=== PATIENT | female | born 1990 | race Caucasian/White ===

== ENCOUNTER 2016-07-14 23:54 | Emergency (ER) | payer SELFPAY ==
[~2016-07-14] VITALS: Ht 157.5 cm; Wt 77.5 kg
[2016-07-14 23:59] VITALS: Ht 157.5 cm; Wt 77.5 kg
--- NOTE | 2016-07-15 01:43 | ERD ---
ER Documentation Chief Complaint Date/Time DATE: 07/15/16 TIME: 01:41 Chief Complaint pelvic pain x 3 days HPI 25 year female presents with emergency department for complaints of pelvic pain after insertion of intrauterine device 3 days ago. Patient described the pain is sharp and cramping pain, 3/10 scale, intermittent. Patient denies any vaginal bleeding. Patient denies any flank pain. Patient denies any fever or chills. Patient denies denies any hematuria or dysuria. She denies any blood in his or black stool. Patient took ibuprofen at home which helped her symptoms. ROS All systems reviewed and are negative except as per history of present illness. Medications Home Meds Reported Medications [none] Unknown Strength No Conflict Check 07/15/16 Allergies Allergies: Coded Allergies: No Known Allergy (Unverified , 07/16/11) PMhx/Soc Medical and Surgical Hx: pt denies Medical Hx, pt denies Surgical Hx History of Surgery: No Anesthesia Reaction: No Hx Neurological Disorder: No Hx Respiratory Disorders: No Hx Cardiac Disorders: No Hx Psychiatric Problems: No Hx Miscellaneous Medical Probl: No Hx Alcohol Use: No Hx Substance Use: No Hx Tobacco Use: No Smoking Status: Never smoker FmHx Family History: No coronary disease, No diabetes, No other Physical Exam Vitals Vital Signs Date Time Temp Pulse Resp B/P Pulse Ox O2 Delivery O2 Flow Rate FiO2 07/14/16 23:59 98.5 88 20 142/94 100 Physical Exam GENERAL: The patient is well developed and appropriate for usual state of health, in no apparent distress. CHEST: Clear to auscultation bilaterally. There are no rales, wheezes or rhonchi. HEART: Regular rate and rhythm. No murmurs, clicks, rubs or gallops. No S3 or S4. ABDOMEN: Soft, nontender and nondistended. Good bowel sounds. No rebound or guarding. No gross peritonitis. No gross organomegaly or masses. No Mendoza sign or McBurney point tenderness. BACK: No midline or flank tenderness. EXTREMITIES: Equal pulses bilaterally. There is no peripheral clubbing, cyanosis or edema. No focal swelling or erythema. Full range of motion. Grossly neurovascularly intact. NEURO: Alert and oriented. Cranial nerves 2-12 intact. Motor strength in all 4 extremities with 5/5 strength. Sensation grossly intact. Normal speech and gait. SKIN: There is no apparent rash or petechia. The skin is warm and dry. HEMATOLOGIC AND LYMPHATIC: There is no evidence of excessive bruising or lymphedema. No gross cervical, axillary, or inguinal lymphadenopathy. Result Diagram: 07/15/1613407/15/16134 Results 24 hrs Laboratory Tests Test 07/15/16 01:35 White Blood Count 9.210^3/ul Red Blood Count 4.8510^6/ul Hemoglobin 13.5g/dl Hematocrit 43.0% Mean Corpuscular Volume 88.7fl Mean Corpuscular Hemoglobin 27.8pg Mean Corpuscular Hemoglobin Concent 31.4g/dl Red Cell Distribution Width 11.8% Platelet Count 49577^3/UL Mean Platelet Volume 9.2fl Neutrophils % 52.8% Lymphocytes % 40.2% Monocytes % 5.3% Eosinophils % 1.2% Basophils % 0.3% Nucleated Red Blood Cells % 0.0/100WBC Neutrophils # 4.910^3/ul Lymphocytes # 3.710^3/ul Monocytes # 0.510^3/ul Eosinophils # 0.110^3/ul Basophils # 0.010^3/ul Nucleated Red Blood Cells # 0.010^3/ul Urine Color LT. YELLOW Urine Clarity CLEAR Urine pH 5.5 Urine Specific [place] <=1.005 Urine Ketones NEGATIVE Urine Nitrite NEGATIVE Urine Bilirubin NEGATIVE Urine Urobilinogen 0.2 E.U./dL Urine Leukocyte Esterase NEGATIVE Urine Hemoglobin NEGATIVE Urine Glucose NEGATIVE% Urine Total Protein NEGATIVE Sodium Level 139mmol/L Potassium Level 3.5mmol/L Chloride Level 102mmol/L Carbon Dioxide Level 25mmol/L Anion Gap 16 Blood Urea Nitrogen 11mg/dl Creatinine 1.03mg/dl Glucose Level 102mg/dl Calcium Level 10.1mg/dl Total Bilirubin 0.4mg/dl Direct Bilirubin 0.00mg/dl Indirect Bilirubin 0.4mg/dl Aspartate Amino Transf (AST/SGOT) 35IU/L Alanine Aminotransferase (ALT/SGPT) 47IU/L Alkaline Phosphatase 89IU/L Total Protein 7.8g/dl Albumin 4.5g/dl Globulin 3.30g/dl Albumin/Globulin Ratio 1.36 Lipase 75U/L PROCEDURE: ULTRASOUND PELVIS CLINICAL INDICATION: 25-year-old female with pelvic pain. TECHNIQUE: Multiple sonographic images of the pelvis were obtained utilizing a transabdominal and endovaginal technique. The images were reviewed on a PACS workstation. COMPARISON: None. FINDINGS: The uterus is visualized and measures 7.1 x 3.4 x 6.0 cm. The endometrial echo complex is within normal limits and measures 8.4 mm. There is an intrauterine device within the endometrial canal. There is no evidence for free fluid. The right ovary has a normal echotexture and measures 4.5 x 2.6 x 3.4 cm. There is flow within the right ovary. There is a right ovarian cyst measuring 2.0 x 1.6 x 1.8 cm. The left ovary was not visualized secondary to overlying bowel gas.. No adnexal masses are noted. IMPRESSION: 1. Intrauterine device. 2. Right ovarian cyst. 3. The left ovary was not visualized. .Froy bAdi MD, Date Time Electronically viewed and signed by .Froy Abdi MD, on 07/15/2016 03:14 .M/ CC: DAVE TRIMBLE NP Procedures/[facility] Medical Decision Making: Patient's pelvic pain nonspecific at this time, possible from cramping after insertion of IUD, IUD is in place, not displaced, patient does not appear to be having perforated uterus, patient also has ovarian cyst, right ovary, appendectomy can be causing the symptoms also. At this time, pain is controlled, no suspicion for ovarian torsion. There is low suspicion for abdominal emergencies at this time. Patients abdominal exam is normal at this time. Patients radiology exam does not show any abdominal emergencies at this time other radiology exam is not indicated at this time. There is low suspicion for appendicitis, cholecystitis, abdominal aortic aneurysms or peritonitis at this time. There is low suspicion for sepsis. Patient appears well and is hemodynamically stable. Disposition: Home. Condition: Stable Prescription ibuprofen, tramadol Instructions: Patient is advised to take medications as prescribed. Patient is advised to rest, increase fluid intake and do see gynecology specialist management or removal if she does not one it anymore. Patient is advised that if symptoms are worse, severe abdominal pain, uncontrolled vomiting, high fever , severe flank pain, worst signs and symptoms, to return to the emergency department immediately. Otherwise, patient can follow up with primary care doctor in 5-7 days. Departure Diagnosis: Primary Impression: Ovarian cyst Laterality: right Qualified Code: N83.201 - Cyst of right ovary Additional Impression: IUD (intrauterine device) in place Condition: Stable Patient Instructions: Control: IUD (Intrauterine Device), Ovarian Cyst Additional Instructions: Patient is advised to take medications as prescribed. Patient is advised to rest, increase fluid intake and do see gynecology specialist management or removal if she does not one it anymore. Patient is advised that if symptoms are worse, severe abdominal pain, uncontrolled vomiting, high fever, severe flank pain, worst signs and symptoms, to return to the emergency department immediately. Otherwise, patient can follow up with primary care doctor in 5-7 days. DAVE TRIMBLE NP Jul 15, 2016 01:43
[2016-07-15 01:47] LABS: ADD SCAN DIFF NO
[2016-07-15 01:49] LABS: BASOPHILS % 0.3 % (0.0-2.0); EOSINOPHILS # 0.1 10^3/ul (0.0-0.5); EOSINOPHILS % 1.2 % (0.0-7.0); HEMOGLOBIN 13.5 g/dl (12.0-16.0); LYMPHOCYTES # 3.7 10^3/ul (0.8-2.9); LYMPHOCYTES % 40.2 % (15.0-51.0); MEAN CORPUSCULAR HEMOGLOBIN 27.8 pg (29.0-33.0); MEAN CORPUSCULAR HGB CONC 31.4 g/dl (32.0-37.0); MEAN CORPUSCULAR VOLUME 88.7 fl (82.0-101.0); MEAN PLATELET VOLUME 9.2 fl (7.4-10.4); MONOCYTE # 0.5 10^3/ul (0.3-0.9); MONOCYTES % 5.3 % (0.0-11.0); NEUTROPHIL # 4.9 10^3/ul (1.6-7.5); NEUTROPHILS % 52.8 % (39.0-77.0); PLATELET COUNT 325 10^3/UL (140-415); RED BLOOD COUNT 4.85 10^6/ul (4.20-5.40); RED CELL DISTRIBUTION WIDTH 11.8 % (11.5-14.5); WHITE BLOOD COUNT 9.2 10^3/ul (4.8-10.8)
[2016-07-15 01:51] LABS: ADD UMIC NO; URINE BILIRUBIN (Dip) NEGATIVE (NEGATIVE); URINE BLOOD (Dip) NEGATIVE (NEGATIVE); URINE COLOR LT. YELLOW (YELLOW); URINE GLUCOSE (Dip) NEGATIVE (NEGATIVE); URINE KETONES (Dip) NEGATIVE (NEGATIVE); URINE LEUKOCYTE ESTERASE (Dip) NEGATIVE (NEGATIVE); URINE NITRITE (Dip) NEGATIVE (NEGATIVE); URINE TOTAL PROTEIN (Dip) NEGATIVE (NEGATIVE); URINE UROBILINOGEN (Dip) 0.2 E.U./dL (0.1-1.0)
[2016-07-15 02:04] LABS: ALBUMIN 4.5 g/dl (3.3-4.9); POTASSIUM 3.5 mmol/L (3.5-5.1)
[2016-07-15 02:06] LABS: BILIRUBIN,INDIRECT 0.4 mg/dl (0-1.1); BILIRUBIN,TOTAL 0.4 mg/dl (0.2-1.3); CREATININE 1.03 mg/dl (0.44-1.00)
[2016-07-15 02:07] LABS: ALBUMIN/GLOBULIN RATIO 1.36; CALCIUM 10.1 mg/dl (8.4-10.2); TOTAL PROTEIN 7.8 g/dl (6.1-8.1)
--- NOTE | 2016-07-15 03:14 | RADRPT ---
PROCEDURE: ULTRASOUND PELVIS CLINICAL INDICATION: 25-year-old female with pelvic pain. TECHNIQUE: Multiple sonographic images of the pelvis were obtained utilizing a transabdominal and endovaginal technique. The images were reviewed on a PACS workstation. COMPARISON: None. FINDINGS: The uterus is visualized and measures 7.1 x 3.4 x 6.0 cm. The endometrial echo complex is within nor mal limits and measures 8.4 mm. There is an intrauterine device within the endometrial canal. There is no evidence for free fluid. The right ovary has a normal echotexture and measures 4.5 x 2.6 x 3. 4 cm. There is flow within the right ovary. There is a right ovarian cyst measuring 2.0 x 1.6 x 1. 8 cm. The left ovary was not visualized secondary to overlying bowel gas.. No adnexal masses are n oted. IMPRESSION: 1. Intrauterine device. 2. Right ovarian cyst. 3. The left ovary was not visualized. .Froy Abdi MD, MD Date Time Electronically viewed and signed by .Froy Abdi MD, on 07/15/2016 03:14 .M/
[2016-07-15] MEDS ORDERED: IBUP-1542 PO (03:25)
[2016-07-15] MEDS ORDERED: TRAM50TA2 PO (03:25)
== END 2016-07-15 03:40 | disposition home or self-care (01) ==
LOC: FTE 23:54
DX: N83.201 Unspecified ovarian cyst, right side (principal); T83.84XA Pain due to genitourinary prosthetic devices, implants and grafts, initial encounter; Y73.2 Prosthetic and other implants, materials and accessory gastroenterology and urology devices associated with adverse incidents
CPT/HCPCS: 36415; 76830; 76856; 80053; 81003; 83690; 85025